=== PATIENT | male | born 2005 | race Caucasian/White ===

== ENCOUNTER 2024-04-06 08:08 | Outpatient (REF) | payer OTHER, SELFPAY ==
[2024-04-06 15:25] LABS: Cholesterol 214 mg/dL (<200); HDL Cholesterol 56 mg/dL (>40); LDL Cholesterol Calculated 142 mg/dL (<100); Triglycerides 84 mg/dL (<150)
[2024-04-07 05:44] LABS: HIV AB/AG Nonreactive (Nonreactive); HIV Num 1 0.07 S/CO (0.00-0.99); ~HepC Num1 0.13 S/CO (0.00-0.79); ~Hepatitis C Antibody Nonreactive (Nonreactive)
== END 2024-04-06 08:09 | disposition home or self-care (01) ==
LOC: HO.CHCLDS 08:08
PROVIDERS: Visit Provider Family Medicine
DX: Z00.00 Encounter for general adult medical examination without abnormal findings (principal); Z11.4 Encounter for screening for human immunodeficiency virus [HIV]
CPT/HCPCS: 36415; 80061; 86803; 87389

== ENCOUNTER 2025-10-21 09:54 | Outpatient (REF) | payer OTHER, SELFPAY ==
--- OUTSIDE RECORDS SUMMARY | 2025-10-21 12:08 | XMS_ITS | Encounter Summary ---
Author Organization [employer] Address [address] [facility] [facility] [address] [place] [address] Care Team Providers Care Brand Advisor Name Role Phone Jael Pearce MD Primary Care Provider Reason for Visit * Reason Onset Date Comments Lab Orders 08/05/2025 Encounter Details Date Type Department Care Team ([facility] Contact Info) Description 08/05/2025 Telephone [facility] [address] [place] [address] Jael Pearce MD [address] [place] [address] Lab Orders Social History Tobacco Use Types Packs/Day Years Used Date Smoking Tobacco: Never Passive Smoke Exposure: Never Smokeless Tobacco: Never Alcohol Use Standard Drinks/Week Comments Never 0 (1 standard drink = 0.6 oz pur e alcohol) Depression Answer Date Recorded Patient Health Questionnaire-9 Score 0 04/02/2024 Patient Health Questionnaire-9 Score 0 04/02/2024 Last PHQ-9: Questionnaire Data Not on file 0 04/02/2024 Housing Stability Answer Date Recorded What is your housing situation today? I have sayra vinson 03/23/[address] you li ve. Do you have problems with any of the following? None of the above 03/23/2024 Food Insecurity Answer Date Recorded Within the past 12 months, y ou worried that your food would run out before you got money to buy more: Never True 03/23/2024 Within the past 12 months,th e food you bought just didn't last and you didn't have enough money to get more: Never True Transportation Answer Date Recorded In the past 12 months, has l ack of transportation kept you from medical appts, meetings, work or from getting things needed for daily living? No 03/23/2024 Utilities Answer Date Recorded In the past 12 months, has t he electric, gas, oil or water company threatened to shut off services in your home? No 03/23/2024 Depression Answer Date Recorded Patient Health Questionnaire-2 Score 0 04/02/2024 Sex and Gender Information Value Date Recorded Sex Assigned at Male 08/06/2023 12:07 PM EDT Legal Sex Male 12:06 PM EDT Gender Identity Male 08/06/2023 12:07 PM EDT Sexual Orientation Straight 04/02/2024 10 :47 AM EDT documented as of this encounter Miscellaneous Notes * Telephone Encounter - Kizzy Chu RN - 08/06/2025 1:52 PM EDT Mom not on HIPAA and labs will need to ordered with a routine visit not for months times. * Telephone Encounter - Mykel Floyd - 08/05/2025 2:22 PM EDT Tc from pt mom requesting general lab orders to be sent to the lab. Mom is requesting for the orderto be sent in October. documented in this encounter Plan of Treatment Upcoming Encounters Date Type Department Care Team (Late st Contact Info) Description 10/22/2025 10:45 AM EST Office Visit [facility] [address] [place] [address] Jael Pearce MD [address] [place] [address] documented as of this encounter Visit Diagnoses Not on filedocumented in this encounter Additional Health Concerns Assessment Noted Time PHQ-9 Depression Total Score: 0 04/02/20 24 11:02 AM EDT documented as of this encounter Care Teams Brand Advisor Relationship Specialty Start Date End Date Jael Pearce MD [address] [place] [id number] PCP - General Family Medicine 04/02/24 documented as of this encounter
--- OUTSIDE RECORDS SUMMARY | 2025-10-21 12:08 | XMS_ITS | Clinical Summary ---
Author Organization [employer] Address [address] [facility] [address] [place] [address] Care Team Providers Care Anthropology Department Chair Name Role Phone Jael Pearce MD Primary Care Provider [phone] Allergies No known active allergies Medications No known medications Active Problems Problem Noted Date Diagnosed Date Physical exam 04/13/2024 Assessment & Plan (04/13/2024 10:04 AM EDT): 18 y.o. here for sports physical, he plays baseball in college in [place], [place]. Given that he is leaving soon, I strongly recommended to visit optometry in [place], will send labs and f/up on results, reports previous lipid was elevated. Encounters Date Type Department Care Team Description 10/15/2025 Patient Outreach [facility] [address] [place] [address] Jael Pearce MD Pre-visit Planning (SDOH will need to be completed in office. Patient working. ) 10/11/2025 1:00 PM EST Office Visit [facility] [address] [place] [address] Jael Pearce MD Encounter for health-related screening (Primary Dx); Class 1 obesity with serious comorbidity and body mass index (BMI) of 32.0 to 32.9 in adult, unspecified obesity type 10/11/2025 Travel 10/08/2025 Telephone [facility] [address] [place] [address] Jael Pearce MD chart prep 08/05/2025 Telephone [facility] [address] [place] [address] Jael Pearce MD Lab Orders from Last 3 Months Family History Medical History Relation Name Comments Hypertension Father Relation Name Status Comments Father Social History Tobacco Use Types Packs/Day Years Used Date Smoking Tobacco: Never Passive Smoke Exposure: Never Smokeless Tobacco: Never Tobacco Cessation:Counseling Given: Not Answered Alcohol Use Standard Drinks/Week Comments Never 0 [...] Orientation Straight 04/02/2024 10 :47 AM EDT Last Filed Vital Signs Vital Sign Reading Time Taken Comments Blood Pressure 122/69 10/11/2025 1:22 PM EST Pulse 68 10/11/2025 1:22 PM EST Temperature 36.3 C (97.4 F) 10/11/2025 1:22 PM EST Respiratory Rate 20 10/11/2025 1:22 PM EST Oxygen Saturation 98% 10/11/2025 1:22 PM EST Inhaled Oxygen Concentration - - Weight 95.3 kg (210 lb 3.2 oz) 10/11/2025 1:22 P M EST Height 172 cm (5' 7.72 ) 10/11/2025 1:22 PM EST Body Mass Index 32.23 10/11/2025 1:22 PM EST Plan of Treatment Upcoming Encounters Date Type Department Care Team (Late st Contact Info) Description 10/22/2025 10:45 AM EST Office Visit [facility] [address] [place] [address] Jael Pearce MD [address] [place] [address] Health Maintenance Due Date Last Done Comments Disability Screening 2004 Alcohol/Substance Use Screening 2016 Family Planning (PISQ) 2019 Meningococcal B Vaccine (1 o f 2 - Standard) 2020 SDOH Screening 03/23/2025 03/23/2024 Depression Screening 04/02/2025 04/02/2024, 04/02/2024 Tobacco Screening 04/02/2025 04/02/2024 Influenza Vaccine (#1) 2026 Postp oned from 07/05/2025 (Patient Refused) COVID-19 Vaccine (3 - 2024-2 6 season) 2026 04/22/2021, 04/01/2021 Postponed from 07/05/2025 (Patient Refused) Chlamydia and Gonorrhea Screening 10/11/2026 Postponed from 09/18 (Patient Refused) DTaP/Tdap/Td Vaccines (1 - Tdap) 10/11/2026 Postponed from 09/18 (Patient Refused) HPV Vaccines (1 - Male 3-dos e series) 10/11/2026 Postponed from 09/18 (Patient Refused) Hepatitis B Vaccines (1 of 3 - 19+ 3-dose series) 10/11/2026 Postponed from 09/04 (Patient Refused) Lipid Panel 04/06/2029 04/06/2024 Zoster Vaccines (1 of 2) 2054 RSV Patients and Patients Aged 60 years or older (1 - 1-dose 75+ series) 2079 HIV Screening Completed 04/06/2024 Hepatitis C Screening Completed 04/06/2024 HIB Vaccines Aged Out No longer eligi ble based on patient's age to complete this topic Hepatitis A Vaccines Aged Out No long er eligible based on patient's age to complete this topic IPV Vaccines Aged Out No longer eligi ble based on patient's age to complete this topic Meningococcal Vaccine Aged Out No jovanny lindsey eligible based on patient's age to complete this topic Pneumococcal Vaccine: Pediatrics (0 to 5 Years) and At-Risk Patients (6 to 49) Years Aged Out No longer eligible b ased on patient's age to complete this topic RSV under 20 months Aged Out No longe r eligible based on patient's age to complete this topic Rotavirus Vaccines Aged Out No longer eligible based on patient's age to complete this topic Procedures Procedure Name Priority Date/Time Associated Diagnosis Comments HEPATITIS C AB W/REFL TO HCV RNA, QN, PCR Routine 04/06/2024 8:15 AM EDT Physical exam HIV 1/2 ANTIGEN/ANTIBODY, FOURTH GENERATION W/RFL Routine 04/06/2024 8:15 AM EDT Physical exam LIPID PANEL, STANDARD Routine 04/06/2024 8:15 AM EDT Physical exam from Last 3 Months or Most Recently Relevant to Health Maintenance Results * Hepatitis C Antibody with Reflex to HCV, RNA, Quantitative, Real-Time PCR (04/06/2024 8:15 AM EDT) Hepatitis C Antibody Nonreactive Nonreactive [facility] Comment:Antibodies to HCV no t detected; does not exclude early acuteHCV infection. Blood Venous blood specimen / Unknown 04/06/2024 8:15 AM EDT 04/06/2024 2:49 PM EDT us Jael Pearce MD LAB BLOOD ORDERABLES Final Re sult [facility] [address] [place] [phone] * HIV-1/2 Antigen and Antibodies, Fourth Generation, with Reflexes (04/06/2024 8:15 AM EDT) HIV AB/AG Nonreactive Nonreactive [facility] Comment:HIV-1 p24 Ag and/or HIV-1/HIV-2 Ab not detected.A test result that is nonreactive does not exclude thepossibility of exposure to or infection with HIV-1 and/orHIV-2. Nonreactive results in this assay for individualswith prior exposure to HIV-1 and/or HIV-2 may be due toantigen and antibody levels that are below the limit ofdetection of this assay.The [employer] HIV Ag/Ab Combo assay result andsupplemental assay results should be interpreted inconjunction with the patient's clinical presentation,history and other laboratory results. If the results areinconsistent with clinical evidence, additional testing issuggested to confirm the result. Blood Venous blood specimen / Unknown 04/06/2024 8:15 AM EDT 04/06/2024 2:49 PM EDT us Jael Pearce MD LAB BLOOD ORDERABLES Final Re sult [facility] [address] [place] [phone] * (ABNORMAL) Lipid Panel, Standard (04/06/2024 8:15 AM EDT) Triglycerides 84 <150 mg/dL [facility] Comment:Desirable Triglyceri de: less than 90 mg/dLBorderline High Triglyceride: 90-129 mg/dLHigh Triglyceride: greater than 130 mg/dL Cholesterol 214(H) <200 mg/dL [facility] Comment:Desirable Cholestero l: less than 170 mg/dLBorderline High Cholesterol: 170-199 mg/dLHigh Cholesterol: greater than 200 mg/dL LDL Cholesterol Calculated 142(H) <100 mg/dL [facility] Comment:Desirable LDL: less than 110 mg/dLBorderline LDL: 110-129 mg/dLHigh LDL: greater than or equal to 130 mg/dL HDL Cholesterol 56 >40 mg/dL [facility] Comment:Desirable HDL: great er than 45 mg/dLBorderline HDL: 40-45 mg/dLLow HDL: less than 40 mg/dL Note: This HDL assay may give artificially low results in patients with liver disease. Blood Venous blood specimen / Unknown 04/06/2024 8:15 AM EDT 04/06/2024 2:49 PM EDT us Jael Pearce MD LAB BLOOD ORDERABLES Final Re sult [facility] [address] [place] [phone] from Last 3 Months or Most Recently Relevant to Health Maintenance Insurance [facility] Care Teams Anthropology Department Chair Relationship Specialty Start Date End Date Jael Pearce MD [address] [place] [address] PCP - General Family Medicine 04/02/24
[2025-10-21 15:06] LABS: MANUAL DIFF FLAG NO
[2025-10-21 15:21] LABS: Hematocrit 49.9 % (42.0-52.0); Hemoglobin 16.5 g/dl (14.0-18.0); Imm Gran Abs Auto 0.03 X10*3/uL (0.00-0.03); Imm Gran Pct Auto 0.5 % (0.0-0.4); Lymphocytes Absolute Auto 1.9 X10*3/uL (1.2-4.9); Mean Corpuscular HGB Conc 33.1 g/dl (31.0-36.0); Mean Corpuscular Hemoglobin 28.9 pg (27.0-33.0); Mean Corpuscular Volume 87.5 fL (80.0-98.0); NRBC Abs Auto 0.000 X10*3/uL (0.0-0.012); NRBC Pct Auto 0.0 /100WBC (0.0-0.2); Platelet Count 241 X10*3/uL (160-400); Red Blood Count 5.70 X10*6/uL (4.60-5.80); White Blood Count 6.2 X10*3/uL (4.8-10.8)
[2025-10-21 16:04] LABS: Alanine Aminotransferase 46 U/L (0-40); Albumin Level 4.4 g/dL (3.5-5.0); Alkaline Phosphatase 95 U/L (39-117); Anion Gap 11 (12-20); Aspartate Amino Transferase 50 U/L (5-37); Blood Urea Nitrogen 21 mg/dL (9-16); Calcium 9.3 mg/dL (8.4-10.2); Carbon Dioxide 27 mmol/L (22-29); Chloride 106 mmol/L (96-108); Cholesterol 222 mg/dL (<200); Estimated Glomerular Filt Rate > 60; HDL Cholesterol 50 mg/dL (>40); Potassium 4.3 mmol/L (3.3-5.1); Sodium 140 mmol/L (135-145); Total Protein 6.8 g/dL (6.5-8.0); Triglycerides 85 mg/dL (<150)
== END 2025-10-21 09:55 | disposition home or self-care (01) ==
LOC: HO.CHCLDS 09:54
PROVIDERS: Visit Provider Family Medicine
DX: E66.811 Obesity, class 1 (principal); Z68.32 Body mass index [BMI] 32.0-32.9, adult
CPT/HCPCS: 36415; 80053; 80061; 82306; 84443; 85025